=== PATIENT | female | born 1980 | race Caucasian/White ===

== ENCOUNTER 2023-02-03 07:21 | Outpatient (RCR) | payer OTHER, SELFPAY ==
--- NOTE | 2023-02-03 10:01 | OT.OP.EVAL ---
Visit Care Team Role Provider Type Cesar Sanders MD Attending Provider Non-Staff Primary Care Provider Referring Provider Specialty: Medical Address: [facility], [address] [place] [address], [id number] Email: Occupational Therapy Initial Evaluation OT Outpatient Adult Evaluation Start: 02/03/23 09:33 Freq: Status: Active Protocol: Document 02/03/23 09:33 [facility] (Rec: 02/03/23 10:01 [facility] [id number]) General Information - Adult Visit Number 1 Insurance Information Prime Treatment Setting Outpatient Care Note Type Initial Evaluation Assessment/Plan Treatment Assessment Sivan is a right hand dominant female referred to outpatient OT secondary to possible [facility] injury to right thumb. Indication of 3-4 out of 10 on Pain Assessment Grid relative to R thumb. Verbally reported having x-ray and MRI w/ indications of arthritis and torn ligaments of the thumb. Injury reportedly occurred secondary to fall on ice in the winter. 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 Sivan was given splint that limits 2nd to 5th digit MPJ ROM, and ROM of R thumb of the MP and IPJ, as well as wrist. She wore the splint x 10 days and took prescribed anti- inflammatory x 10 days. She stopped wearing splint post- MRI/x-rays and d/t splint's interference in day-to-day life. She is currently taking [id number] medication for pain/discomfort/swelling. She reports difficulties w/ day-to-day tasks, work tasks, and meaningful tasks, including paddle boarding. Tolerated lateral pinch and matcher leather parts strength testing x 1 trial each; 10.0# of force R lateral pinch, 11.0# of force L lateral pinch; 59.0# of force R matcher leather parts and 55.0# of force L matcher leather parts w/ dynamometer II strength testing. Increased laxity of B MP joints; R > L. Increased laxity noted ulnarly of MPJ w/ slight flexion at MPJ. Recommend that patient be evaluated and treated by certified hand therapist w/ consideration of custom made thumb spica splint. Patient Recommendations Discharge from Occupational Therapy
--- NOTE | 2023-02-03 10:04 | OT.OP.DC ---
Visit Care Team Role Provider Type Cesar Sanders MD Attending Provider Non-Staff Primary Care Provider Referring Provider Address: [address], [address] Email: OT Outpatient OT Outpatient Adult Evaluation Start: 02/03/23 09:33 Freq: Status: Active Protocol: Document 02/03/23 09:33 [facility] (Rec: 02/03/23 10:01 [facility] [id number]) General Information - Adult Visit Information Visit Number 1 Insurance Information Prime Setting Treatment Setting Outpatient Care Visit Type Note Type Initial Evaluation Assessment/Plan Assessment Treatment Assessment Sivan is a right hand dominant female referred to outpatient OT secondary to possible UCL injury to right thumb. Indication of 3-4 out of 10 on Pain Assessment Grid relative to R thumb. Verbally reported having x-ray and MRI w/ indications of arthritis and torn ligaments of the thumb. Injury reportedly occurred secondary to fall on ice in the winter. 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 Sivan was given splint that limits 2nd to 5th digit MPJ ROM, and ROM of R thumb of the MP and IPJ, as well as wrist. She wore the splint x 10 days and took prescribed anti- inflammatory x 10 days. She stopped wearing splint post- MRI/x-rays and d/t splint's interference in day-to-day life. She is currently taking [id number] medication for pain/discomfort/swelling. She reports difficulties w/ day-to-day tasks, work tasks, and meaningful tasks, including paddle boarding. Tolerated lateral pinch and director of assessing strength testing x 1 trial each; 10.0# of force R lateral pinch, 11.0# of force L lateral pinch; 59.0# of force R director of assessing and 55.0# of force L director of assessing w/ dynamometer II strength testing. Increased laxity of B MP joints; R > L. Increased laxity noted ulnarly of MPJ w/ slight flexion at MPJ. Recommend that patient be evaluated and treated by certified hand therapist w/ consideration of custom made thumb spica splint. Plan Patient Recommendations Discharge from Occupational Therapy Functional Wrist/Hand Scan Hand Side Sensory Assessment Sensory Profile2
== END 2023-02-04 15:06 | disposition home or self-care (01) ==
LOC: OT 07:21
PROVIDERS: PCP Student in an Organized Health Care Education/Training Program; Referring Provider Student in an Organized Health Care Education/Training Program; Visit Provider Student in an Organized Health Care Education/Training Program
DX: M79.644 Pain in right finger(s) (principal)
CPT/HCPCS: 97165